=== PATIENT | male | born 1940 | race Two or more races ===

== ENCOUNTER 2022-04-24 07:27 | Day surgery (SDC) | payer OTHER ==
[~2022-04-24] VITALS: Ht 160 cm; Wt 72.6 kg
[~2022-04-24 07:27] MED LIST: ASPI81TA10 PO; ATOR40TA52 PO; FINA5TAB4 PO; FLUO0.059 TOP; FLUT1SPR21; HYDR25TA4 PO; LATA0.0019 OP; LORA-622 PO; LOSA-39 PO; METF-370 PO
[2022-04-24] MEDS ORDERED: fentaNYL CITRATE 100 MCG/2 ML VL IV ONE (08:15)
[2022-04-24] MEDS ORDERED: MIDAZOLAM HCL 2MG/2ML 2ml VIAL (1mg/ml) IV ONE (08:15)
[2022-04-24] MEDS ORDERED: LIDOCAINE VISCOUS 2% 15ML UD PO ONE (08:15)
== END 2022-04-24 10:56 | disposition home or self-care (01) ==
LOC: CATH 07:27
PROVIDERS: ATTEND Internal Medicine Cardiovascular Disease
DX: I37.1 Nonrheumatic pulmonary valve insufficiency (principal); I35.0 Nonrheumatic aortic (valve) stenosis; Z20.822 Contact with and (suspected) exposure to COVID-19; I10 Essential (primary) hypertension; Z79.899 Other long term (current) drug therapy
CPT/HCPCS: 93312; J2250; J3010; J7030; U0003; 99152

== ENCOUNTER 2023-03-20 07:11 | Day surgery (SDC) | payer OTHER ==
[~2023-03-20] VITALS: Ht 162.6 cm; Wt 73.5 kg
[~2023-03-20 07:11] MED LIST changes: +FLUO-381 TOP; -FLUO0.059 TOP; -LATA0.0019 OP; +LATA0.008 OP; -LOSA-39 PO; +LOSA100T58 PO
[2023-03-20] MEDS ORDERED: HEPARIN SODIUM (PORCINE) 5000 UNITS/ML 1ML VIAL ONE (07:33)
[2023-03-20] MEDS ORDERED: ANGIOMAX 250 MG VIAL IV ONE (07:33)
[2023-03-20] MEDS ORDERED: VERAPAMIL 2.5MG/ML INJ 2ML VIAL IV ONE (07:34)
[2023-03-20] MEDS ORDERED: SODIUM CHL 0.9% 0 ML ONE (07:34)
[2023-03-20] MEDS ORDERED: MIDAZOLAM HCL 2MG/2ML 2ml VIAL (1mg/ml) ONE (07:34)
[2023-03-20] MEDS ORDERED: LIDOCAINE 2%HCL (LOCAL ANESTH.) INJ 20ML MDV ONE (07:34)
[2023-03-20] MEDS ORDERED: fentaNYL CITRATE 100 MCG/2 ML VL ONE (07:34)
[2023-03-20] MEDS ORDERED: HEPARIN IN NS 1000Units/500mL 1,500 ML ONE (07:35)
[2023-03-20] MEDS ORDERED: IODIXANOL 320MG/ML 100ML BTL IV ONE ×2 (07:35→09:38)
== END 2023-03-20 12:35 | disposition home or self-care (01) ==
LOC: CATH 07:11
PROVIDERS: ATTEND Internal Medicine Cardiovascular Disease
DX: I25.10 Atherosclerotic heart disease of native coronary artery without angina pectoris (principal); I35.0 Nonrheumatic aortic (valve) stenosis; R06.02 Shortness of breath; I10 Essential (primary) hypertension; E78.5 Hyperlipidemia, unspecified; E11.9 Type 2 diabetes mellitus without complications; Z79.899 Other long term (current) drug therapy; Z79.84 Long term (current) use of oral hypoglycemic drugs; Z79.01 Long term (current) use of anticoagulants; Z79.82 Long term (current) use of aspirin; Z98.890 Other specified postprocedural states
CPT/HCPCS: 76937; 93460; J1644; J2250; J3010; J7040; Q9967; 99152; C1894